=== PATIENT | female | born 1960 | race Caucasian/White ===

== ENCOUNTER 2022-01-12 10:07 | Emergency (ER) | payer OTHER ==
[~2022-01-12] VITALS: Ht 157.5 cm; Wt 77.1 kg
== END 2022-01-12 11:26 | disposition home or self-care (01) ==
LOC: ER 10:07
DX: S80.12XA Contusion of left lower leg, initial encounter (principal); W22.03XA Walked into furniture, initial encounter
CPT/HCPCS: 99283